=== PATIENT | female | born 1965 | race Caucasian/White ===

== ENCOUNTER → 2017-05-31 | Outpatient (CLI) | payer OTHER ==
[~2017-05-31] MED LIST: BUPR100T7 PO; CYCL10TA2 PO; GABA-586 PO; NITR100C63 PO; OMEP20CA9 PO; PARO40TA61 PO; TRAM50TA PO; TRAZ50TA15 PO
--- NOTE | 2017-05-31 10:27 | KCIC ---
EXAM: Lumbar spine MRI without contrast. HISTORY: Pain. TECHNIQUE: Multiplanar, multisequence magnetic resonance imaging of the lumbar spine was performed without contrast. COMPARISON: None. FINDINGS: There is minimal retrolisthesis of L4 and L5. There is minimal disc desiccation at this level. The vertebral bodies are normal in height and the disc spaces are preserved. There is no suspicious osseous lesion. There is suspected small hemangioma within T12. There is soft tissue signal within the left retroperitoneum at the superior margin of the [id number], possibly related to the proximal duodenum, a lymph node or the left adrenal gland. This is incompletely evaluated on the current field of view. At L1-L2, there is no stenosis. At L2-L3, there is a minimal disc bulge with posterior annular tear. There is minimal facet arthropathy. There is no stenosis. At L3-L4, there is a minimal disc bulge. There is minimal facet arthropathy. There is a tiny dilated nerve root sheath cyst within the right neural foramen. There is no stenosis. At L4-L5, there is a shallow posterior central to right paracentral disc protrusion superimposed on a disc bulge. There is mild facet arthropathy. There is no stenosis. At L5-S1, there is mild facet arthropathy. There is no stenosis. IMPRESSION: 1. Minimal to mild degenerative change at the lumbar spine, described in detail above. There is no significant stenosis. 2. Soft tissue structure within the left retroperitoneal the superior margin of the [id number]. This may be due to proximal small bowel, enlarged lymph node or a left adrenal lesion, partially excluded from the [id number]. Electronically signed by: Naya Vital MD (05/31/2017 10:24 AM) [facility]
== END | disposition home or self-care (01) ==
LOC: KCIC MRI 09:28
PROVIDERS: ATTEND Physician Assistant
DX: M47.896 Other spondylosis, lumbar region (principal); M12.88 Other specific arthropathies, not elsewhere classified, other specified site
CPT/HCPCS: 72148

== ENCOUNTER → 2017-07-06 | Outpatient (CLI) | payer OTHER ==
[2017-07-06] MEDS: GADOBUTROL 7.5 MMOL/7.5 ML VIAL IV (16:45)
== END | disposition home or self-care (01) ==
LOC: MRI 14:45
DX: D44.12 Neoplasm of uncertain behavior of left adrenal gland (principal)
CPT/HCPCS: 74183; A9585

== ENCOUNTER → 2017-09-07 | Outpatient (CLI) | payer OTHER ==
[~2017-09-07] MED LIST changes: -BUPR100T7 PO; +CONTRAST GIVEN MC; -CYCL10TA2 PO; -GABA-586 PO; -NITR100C63 PO; -OMEP20CA9 PO; -PARO40TA61 PO; -TRAM50TA PO; -TRAZ50TA15 PO
[2017-09-07] MEDS: IOHEXOL 240 MG/ML 50ML VIAL. PO (08:50)
[2017-09-07] MEDS: diphenhydrAMINE HCL 25 MG CAPSULE PO (09:15)
[2017-09-07] MEDS: IOHEXOL 300 MG/ML 100ML VIAL. IV (09:57)
== END | disposition home or self-care (01) ==
LOC: KCIC CT 08:30
DX: M47.898 Other spondylosis, sacral and sacrococcygeal region (principal); K44.9 Diaphragmatic hernia without obstruction or gangrene; Z98.84 Bariatric surgery status
CPT/HCPCS: 74177; Q0163; Q9966; Q9967

== ENCOUNTER 2021-03-15 21:10 | Emergency (ER) | payer SELFPAY ==
[~2021-03-15] VITALS: Ht 162.6 cm; Wt 72.7 kg
[~2021-03-15 21:10] MED LIST changes: +BUPR100T7 PO; -CONTRAST GIVEN MC; +CYCL10TA2 PO; +GABA300C18 PO; +NITR100C63 PO; +OMEP20CA16 PO; +PARO10TA57 PO; +PARO40TA61 PO; +TRAM50TA PO; +TRAZ-118 PO
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
[2021-03-15 22:41] LABS: BASO # 0.1 x10^3/uL (0.0-0.2); BASO % 1 % (0-3); EOS % 0 % (0-3); HEMATOCRIT 33.8 % (36.0-47.0); HEMOGLOBIN 10.8 g/dL (12.0-15.5); LYMPH # 0.9 x10^3/uL (1.0-4.8); LYMPH % 16 % (24-48); MEAN CORPUSCULAR HEMOGLOBIN 24 pg (25-35); MEAN CORPUSCULAR HGB CONC 32 g/dL (31-37); MEAN CORPUSCULAR VOLUME 74 fL (79-100); MONO # 0.2 x10^3/uL (0.0-1.1); MONO % 5 % (0-9); NEUT # 4.1 x10^3/uL (1.8-7.7); NEUT % 78 % (31-73); PLATELET COUNT 259 x10^3/uL (140-400); RED BLOOD COUNT 4.55 x10^6/uL (3.50-5.40); WHITE BLOOD COUNT 5.3 x10^3/uL (4.0-11.0)
[2021-03-15 22:42] LABS: BILIRUBIN,URINE NEGATIVE (NEG); CLARITY,URINE CLEAR; COLOR,URINE YELLOW; NITRITE,URINE NEGATIVE (NEG); PH,URINE 5.5 (<5.0-8.0); PROTEIN,URINE NEGATIVE (NEG-TRACE); UROBILINOGEN,URINE 0.2 mg/dL (0.2 mg/dL)
[2021-03-15 22:52] LABS: BARBITURATES NEG (NEG); BENZODIAZEPINES NEG (NEG); CANNABINOIDS NEG (NEG); COCAINE NEG (NEG); METHADONE NEG (NEG); OPIATES NEG (NEG); PHENCYCLIDINE NEG (NEG)
[2021-03-15 23:02] LABS: CALCIUM 8.3 mg/dL (8.5-10.1); CREATININE 0.9 mg/dL (0.6-1.0); GFR 64.5; POTASSIUM 3.7 mmol/L (3.5-5.1)
[2021-03-15 23:12] LABS: BACTERIA,URINE 0 /HPF (0-FEW); RBC,URINE 0 /HPF (0-2)
[2021-03-15 23:23] LABS: AMPHETAMINE/METHAMPHETAMINE NEG (NEG)
[2021-03-16 00:32] VITALS: BP 107/59
== END 2021-03-16 00:40 | disposition home or self-care (01) ==
LOC: ER 21:10
DX: F10.129 Alcohol abuse with intoxication, unspecified (principal); Y90.6 Blood alcohol level of 120-199 mg/100 ml; R41.0 Disorientation, unspecified; Z87.891 Personal history of nicotine dependence; Z91.041 Radiographic dye allergy status; Z88.8 Allergy status to other drugs, medicaments and biological substances
CPT/HCPCS: 36415; 80048; 80307; 81001; 85025; 99283; G0480